=== PATIENT | male | born 1995 ===

== ENCOUNTER 2017-04-29 18:01 | Emergency (ER) | payer MEDICAID ==
[2017-04-29 18:02] VITALS: BMI 20.6
[2017-04-29 18:28] VITALS: BP 109/63; PULSE 115; RESP 19; TEMP 99.6; O2SAT 100
[2017-04-29] MEDS ORDERED: DiphenhydrAMINE 50 mg/ml Inj IVP STA (19:02)
[2017-04-29] MEDS ORDERED: DiphenhydrAMINE 50 mg/ml Inj ONE (19:37)
[2017-04-29 19:59] LABS: BASO # 0.1 K/uL (0.0-0.2); EOS # 0.4 K/uL (0.0-0.7); EOS % 2.8 % (0.0-4.0); LYMPH # 3.2 K/uL (1.0-4.3); LYMPH % 24.4 % (20.0-40.0); MEAN CELL VOLUME 71.5 fl (80.0-94.0); MEAN CORPUSCULAR HEMOGLOBIN 22.4 pg (27.0-31.0); MEAN CORPUSCULAR HGB CONC 31.4 g/dL (33.0-37.0); MEAN PLATELET VOLUME 7.8 fl (7.2-11.7); MONO # 0.9 K/uL (0.0-0.8); MONO % 6.7 % (0.0-10.0); NEUT # 8.5 K/uL (1.8-7.0); NEUT % 65.1 % (50.0-75.0); NRBC % 0.1 % (0.0-0.0); RBC 4.45 Mil/uL (4.40-5.90); RED CELL DISTRIBUTION WIDTH 17.3 % (11.5-14.5)
[2017-04-29 20:19] LABS: PARTIAL THROMBOPLASTIN TIME 30.9 Seconds (25.6-37.1); PROTHROMBIN TIME 11.5 Seconds (9.8-13.1)
[2017-04-29 20:20] LABS: ALB/GLOB RATIO 0.9 (1.0-2.1); ALBUMIN 3.8 g/dL (3.5-5.0); ALT/SGPT 55 U/L (21-72); AMYLASE 134 U/L (30-110); AST/SGOT 56 U/L (17-59); BLOOD UREA NITROGEN 13 mg/dl (9-20); CALCIUM 9.5 mg/dL (8.4-10.2); GFR AFRICAN-AMERICAN > 60; GFR NON-AFRICAN AMERICAN > 60; LIPASE 290 U/L (23-300)
[2017-04-29] MEDS ORDERED: Sodium Chloride 0.9% 1,000 ML IV STA (20:47)
[2017-04-29 20:58] LABS: OPIATES, UR NEGATIVE (NEGATIVE)
[2017-04-29 21:01] LABS: BARBITURATES, UR NEGATIVE (NEGATIVE); BENZODIAZEPINES, UR NEGATIVE (NEGATIVE); PHENCYCLIDINE, UR NEGATIVE (NEGATIVE)
--- NOTE | 2017-04-29 21:20 | ED PDOC ---
HPI: General Adult Time Seen by Provider: 04/29/17 18:27 Chief Complaint (Nursing): Abdominal Pain Chief Complaint (Provider): Abdominal Pain History Per: Patient History/Exam Limitations: no limitations Onset/Duration Of Symptoms: Days Current Symptoms Are (Timing): Still Present Additional Complaint(s): 21 year old male presents to the emergency department with a complaint of increasing abdominal pain and pain to lesions on his buttock area associated with vomiting x2 weeks. Reports his vomit at times is blood tinged as well as episodes of blood in his colostomy bag and rectal bleeding. 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 Patient has been to [facility] multiple times for this and reports being unhappy with care under the surgeon, Dr. Westbrook. Denies alcohol or drug use. Sketcher: Dr. Benton ESCOBAR PMD: Dr. Yanick Moe MD Past Medical History Reviewed: Historical Data, Nursing Documentation, Vital Signs Vital Signs: Last Vital Signs Temp 99.6 F 04/29/17 18:26 Pulse 115 H 04/29/17 18:26 Resp 19 04/29/17 18:26 BP 109/63 04/29/17 18:26 Pulse Ox 100 04/29/17 23:55 - Medical History PMH: Crohn's Disease (COLOSTOMY 2015), Depression Denies: Chronic Kidney Disease Other PMH: Abscess to the buttock and perineal area - Surgical History Other surgeries: Colostomy bag (2015) - Family History Family History: States: No Known Family Hx - Social History Current smoker - smoking cessation education provided: No Alcohol: None Drugs: Denies - Immunization History Hx Tetanus Toxoid Vaccination: No Hx Influenza Vaccination: Yes Hx Pneumococcal Vaccination: No - Home Medications Home Medications: Ambulatory Orders Medication Instructions Recorded Ascorbic Acid [Vitamin C 500 mg 500 mg PO DAILY #30 tab 11/24/16 Tab] Cyanocobalamin [Vitamin B12 1000 1,000 mcg PO DAILY tab 11/24/16 mcg Tab] Mesalamine [Asacol HD 800mg] 1,600 mg PO TID 04/06/17 Sucralfate [Carafate Tab] 1 gm PO BID 04/06/17 Calcium Alginate [Restore] 1 each TP BID #60 bandage 04/21/17 Clotrimazole 1% Cream [Lotrimin 1% 15 applic EXT BID #7 tube 04/21/17 CREAM] Sulfamethoxazole/Trimethoprim 1 tab PO Q12 14 Days #28 tab 04/21/17 [Bactrim DS 800 mg-160 mg] Dicyclomine [Bentyl] 20 mg PO BID PRN #30 tab 04/29/17 - Allergies Allergies/Adverse Reactions: Allergies Allergy/AdvReac Type Severity Reaction Status Date / Time morphine Allergy Severe ITCHING Verified 04/24/17 17:38 Review of Systems ROS Statement: Except As Marked, All Systems Reviewed And Found Negative (As per HPI, otherwise negative) Gastrointestinal: Positive for: Vomiting, Abdominal Pain, Hematemesis, Rectal Pain (bleeding), Other (Blood in colostomy bag) Skin: Positive for: Lesions (to the buttock area) Physical Exam - Reviewed Nursing Documentation Reviewed: Yes - Physical Exam Appears: Positive for: Non-toxic, No Acute Distress Head Exam: Positive for: ATRAUMATIC, NORMOCEPHALIC Skin: Positive for: Warm (bilateral buttock with old scars from previous abscess , anterior midline gluteal fold (just posterior to anal verge) with well delineated exposed dermis (ulcer) within the fold), Dry Eye Exam: Positive for: EOMI, PERRL ENT: Negative for: Pharyngeal Erythema, Tonsillar Exudate Neck: Positive for: Painless ROM, Supple Cardiovascular/Chest: Positive for: Regular Rate, Rhythm, Chest Non Tender. Negative for: Murmur Respiratory: Positive for: Normal Breath Sounds. Negative for: Wheezing Gastrointestinal/Abdominal: Positive for: Soft, Tenderness (diffuse), Other ( colostomy in place). Negative for: Mass, Distended, Guarding Back: Positive for: Normal Inspection. Negative for: Muscle Spasm - Laboratory Results Result Diagrams: 04/29/17 19:53 04/29/17 19:53 - ECG O2 Sat by Pulse Oximetry: 100 (RA) Pulse Ox Interpretation: Normal Medical Decision Making Medical Decision Making: Time: 2101 Initial Impression: Crohn's disease and abdominal pain with possible crohn's exacerbation and acute on chronic pain. Differential include fistula, diverticulitis, and colitis. Initial Plan: --Chemistry and lab work ordered --Tylenol 975 mg PO --Bentyl 20 mg PO --Benadryl 25 mg IVP --Toradol 15 mg IVP --Pantoprazole 40 mg IVP --Promethazine 25 mg IV --Tramadol 50 mg PO --Sodium Chloride 1L IV --Abd & Pelvis IV Contrast CT --Reevaluation --Reviewed patients previous charted with multiple admissions to [facility] for crohn's exacerbation however last visit patient was evaluated in emergency department for possible drug overdose. Patient reports at that time he had just broken up with a girlfriend and a friend gave him a pill to try. Otherwise denies abusing any drugs. Time: 23:38 Abdomen/Pelvis CT FINDINGS: Lower thorax: No acute findings. ABDOMEN: Liver: Hepatic steatosis. Gallbladder and bile ducts: Unremarkable. No calcified stones. No ductal dilation. Pancreas: Unremarkable. No mass. No ductal dilation. Spleen: Unremarkable. No splenomegaly. Adrenals: Unremarkable. No mass. Kidneys and ureters: Unremarkable. No solid mass. No hydronephrosis. Stomach and bowel: Stomach is unremarkable. Small bowel loops are nonobstructed. Left lower quadrant colostomy. Decompression of distal colon and rectosigmoid. Appendix: No findings to suggest acute appendicitis. PELVIS: Bladder: Unremarkable. No mass. Reproductive: Unremarkable as visualized. ABDOMEN and PELVIS: Intraperitoneal space: Unremarkable. No free air. No significant fluid collection. Bones/joints: No acute fracture. No dislocation. Soft tissues: Unremarkable. Vasculature: Unremarkable. No abdominal aortic aneurysm. Lymph nodes: Unremarkable. No enlarged lymph nodes. IMPRESSION: No evidence of bowel obstruction. Time: 2345 -- Labs are stable --Patient appears comfortable despite complaints --Patient is stable for discharge Scribe Attestation: Documented by Domonique Ball and Sienna Moe, acting as a scribe for Tamika Clark MD. Provider Scribe Attestation: All medical record entries made by the Scribe were at my direction and personally dictated by me. I have reviewed the chart and agree that the record accurately reflects my personal performance of the history, physical exam, medical decision making, and the department course for this patient. I have also personally directed, reviewed, and agree with the discharge instructions and disposition. Disposition - Clinical Impression Clinical Impression: Crohn disease, Abdominal pain - Disposition Referrals: Boston Paige MD [Staff Provider] - (FOLLOW UP WITH SURGERY SOON POSSIBLE FOR REEVALUATION) Javier Andino MD [Medical Doctor] - (FOLLOW UP WITH GASTROENTEROLOGY SOON POSSIBLE FOR FURTHER EVALUATION) Disposition: Routine/Home Disposition Time: 23:00 Condition: STABLE Prescriptions: Dicyclomine [Bentyl] 20 mg PO BID PRN #30 tab PRN Reason: abdominal pain Instructions: Crohn's Disease in Adults, Chronic Pain Forms: [facility] ED School/Work Excuse
[2017-04-29] MEDS ORDERED: Iohexol 300 100 ML IJ ONE (22:13)
[2017-04-29] MEDS ORDERED: Sodium Chloride 0.9% 50 ML IV ONE (22:13)
--- NOTE | 2017-04-29 23:38 | CT ---
EXAM: CT Abdomen and Pelvis With Intravenous Contrast CLINICAL HISTORY: 21 years old, male; Pain; Abdominal pain; Generalized; Prior surgery; Surgery date: 6+ months; Surgery type: Colostomy; Additional info: Vomiting and abd pain h/o crohn, bleeding, colosto. Sent phy. Doc. TECHNIQUE: Axial computed tomography images of the abdomen and pelvis with intravenous contrast. All CT scans at this facility use one or more dose reduction techniques, viz.: automated exposure control; ma/kV adjustment per patient size (including targeted exams where dose is matched to indication; i.e. head); or iterative reconstruction technique. Coronal and sagittal reformatted images were created and reviewed. CONTRAST: 95 mL of [id number] administered intravenously. COMPARISON: No relevant prior studies available. FINDINGS: Lower thorax: No acute findings. ABDOMEN: Liver: Hepatic steatosis. Gallbladder and bile ducts: Unremarkable. No calcified stones. No ductal dilation. Pancreas: Unremarkable. No mass. No ductal dilation. Spleen: Unremarkable. No splenomegaly. Adrenals: Unremarkable. No mass. Kidneys and ureters: Unremarkable. No solid mass. No hydronephrosis. Stomach and bowel: Stomach is unremarkable. Small bowel loops are nonobstructed. Left lower quadrant colostomy. Decompression of distal colon and rectosigmoid. Appendix: No findings to suggest acute appendicitis. PELVIS: Bladder: Unremarkable. No mass. Reproductive: Unremarkable as visualized. ABDOMEN and PELVIS: Intraperitoneal space: Unremarkable. No free air. No significant fluid collection. Bones/joints: No acute fracture. No dislocation. Soft tissues: Unremarkable. Vasculature: Unremarkable. No abdominal aortic aneurysm. Lymph nodes: Unremarkable. No enlarged lymph nodes. IMPRESSION: No evidence of bowel obstruction. Remainder of findings as above [email or web address]
== END 2017-04-29 23:45 | disposition home or self-care (01) ==
LOC: H.ER 18:01
DX: K50.90 Crohn's disease, unspecified, without complications (principal); R10.9 Unspecified abdominal pain
CPT/HCPCS: 74177; 80053; 80324; 80345; 80346; 80349; 80353; 80358; 80361; 82150; 83615; 83690; 83735; 83992; 84100; 85025; 85610; 85730; 86850; 86900; 87040; 96361; 96365; 96375; 99284; C9113; J1200; J1885; J2550; J7040; Q9967